=== PATIENT | male | born 1985 | race Caucasian/White ===

== ENCOUNTER 2016-10-17 11:09 | Emergency (ER) | payer SELFPAY ==
[~2016-10-17] VITALS: Ht 182.9 cm; Wt 83.9 kg
--- NOTE | 2016-10-17 11:19 | NUR ---
[facility] to ER; no acute distress; ETOH from [employer]
--- NOTE | 2016-10-17 11:20 | NUR ---
The patient ambulates in the hallway to the rest room; steady gait noted. No acute distress.
--- NOTE | 2016-10-17 11:29 | NUR ---
cleared by Dr. Garcia; the patient will be discharged after 1 hour. The patient request if he could sleep for 1 hour. Patient discharged to home in stable condition. Written and verbal after care instructions given. Patient verbalizes understanding of instruction.
[2016-10-17 11:31] VITALS: BP 155/78
== END 2016-10-17 11:32 | disposition home or self-care (01) ==
LOC: ER 11:11
DX: F10.129 Alcohol abuse with intoxication, unspecified (principal); R47.81 Slurred speech
CPT/HCPCS: 99283; A4606; Z7610

== ENCOUNTER 2016-10-17 16:07 | Emergency (ER) | payer SELFPAY ==
[~2016-10-17] VITALS: Ht 172.7 cm; Wt 81.6 kg
[2016-10-17 17:13] VITALS: BP 139/81
== END 2016-10-17 17:14 | disposition home or self-care (01) ==
LOC: ER 16:08
DX: F32.9 Major depressive disorder, single episode, unspecified (principal); I10 Essential (primary) hypertension
CPT/HCPCS: A4606; Z7502; Z7610